=== PATIENT | female | born 1980 | race Caucasian/White ===

== ENCOUNTER → 2018-06-09 06:00 | Outpatient (CLI) | payer OTHER ==
[~2018-06-09 06:00] MED LIST: METROPOLOL PO; SINGULAIR10 MG PO
== END | disposition home or self-care (01) ==
LOC: EKG 06:00 → ADM 07:15 → EDSTATUS 07-14 07:15 → CIR.AMB 07-14 07:15
DX: Z01.810 Encounter for preprocedural cardiovascular examination (principal); I10 Essential (primary) hypertension

== ENCOUNTER 2018-10-31 06:12 | Day surgery (SDC) | payer OTHER | END 2018-10-31 17:05 | disposition home or self-care (01) | LOC: CIR.AMB 06:12 | DX: S63.592A Other specified sprain of left wrist, initial encounter (principal) ==

== ENCOUNTER 2019-01-02 06:13 | Day surgery (SDC) | payer OTHER | END 2019-01-02 14:50 | disposition home or self-care (01) | LOC: CIR.AMB 06:13 | DX: M66.242 Spontaneous rupture of extensor tendons, left hand (principal) ==

== ENCOUNTER 2023-12-01 07:44 | Outpatient (CLI) | payer OTHER | END 2023-12-01 07:48 | disposition home or self-care (01) | LOC: SONOGRAMA 07:44 | PROVIDERS: ATTEND Pathology Anatomic Pathology & Clinical Pathology | DX: C73 Malignant neoplasm of thyroid gland (principal); E04.2 Nontoxic multinodular goiter ==

== ENCOUNTER 2024-10-03 07:04 | Day surgery (SDC) | payer OTHER ==
[2024-10-03] MEDS ORDERED: POVIDONE-IODINE 118 ML BOTT TOP ONE (13:30)
[2024-10-03] MEDS ORDERED: MORPHINE SULFATE 4 MG/ML VIAL IV PRN (14:30)
[2024-10-03] MEDS ORDERED: PROMETHAZINE HCL 50 MG/ML AMPUL IM ONE (14:30)
== END 2024-10-03 19:25 | disposition home or self-care (01) ==
LOC: CIR.AMB 07:04
PROVIDERS: ATTEND Obstetrics & Gynecology
DX: N84.0 Polyp of corpus uteri (principal); Z88.5 Allergy status to narcotic agent